=== PATIENT | female | born 1945 | race Caucasian/White ===

== ENCOUNTER 2021-09-27 16:21 | Inpatient (IN) ==
[2021-09-28] MEDS ORDERED: Ondansetron 4 MG/2 ML VIAL IVP PRN (02:08)
[2021-09-28] MEDS ORDERED: Acetaminophen 325 MG TABLET PO PRN (02:08)
[2021-09-28] MEDS ORDERED: Naloxone 0.4 MG/ML INJ IVP PRN (02:08)
[2021-09-28] MEDS ORDERED: traZODone 50 MG TABLET PO PRN (03:37)
[2021-09-28] MEDS ORDERED: Simethicone 80 MG TAB.CHEW PO PRN (03:37)
[2021-09-28] MEDS ORDERED: Dextrose Gel 15 GM/37.5 ML TUBE PO PRN ×2 (08:43)
[2021-09-28] MEDS ORDERED: *HR* Dextrose 50 % in Water (Syg) 50 ML SYRINGE IVP PRN (08:43)
[2021-09-28] MEDS ORDERED: D5% in Water 1,000 ML IVC PRN (08:43)
[2021-09-28] MEDS ORDERED: CefTRIAXone 1,000 MG VIAL IVPB SCH (09:00)
[2021-09-28] MEDS: Patient Taking Own Medication 1 EACH PO SCH (09:30)
[2021-09-28] MEDS: cefTRIAXone 1,000 MG in 0.9 % Sodium Chloride Mini Bag 100 ML IVPB SCH (09:31)
[2021-09-28] MEDS: Metoprolol XL (24 HR) Succ 25 MG TAB.ER.24H PO SCH (09:35)
[2021-09-28] MEDS: Ascorbic Acid 500 MG TABLET PO SCH (09:35)
[2021-09-28] MEDS: *HR* Glimepiride 2 MG TABLET PO SCH ×2 (09:36→22:52)
[2021-09-28] MEDS: *HR* Rivaroxaban 10 MG TABLET PO SCH (09:36)
[2021-09-28] MEDS: Furosemide 40 MG TABLET PO SCH (09:36)
[2021-09-28] MEDS: Cholecalciferol (D-3) 1,000 UNIT (25MCG) TABLET PO SCH (09:36)
[2021-09-28] MEDS: Cyanocobalamin (B-12) 1,000 MCG TABLET PO SCH (09:36)
[2021-09-28] MEDS: metroNIDAZOLE 500 MG TABLET PO SCH ×3 (09:37→22:50)
[2021-09-28] MEDS: Aspirin Enteric Coated 81 MG Tablet PO SCH (09:37)
[2021-09-28] MEDS: Fluconazole 100 MG TABLET PO SCH (09:37)
[2021-09-28] MEDS: Magnesium Oxide 400 MG TABLET PO SCH (09:37)
[2021-09-28] MEDS: Insulin DETEMIR 100 UNIT/ML X5UNITS SUBQ SCH ×2 (09:39→23:00)
[2021-09-28] MEDS: *HR* OxyCODONE/APAP 5/325 TABLET PO PRN ×2 (09:49→22:47)
[2021-09-28] MEDS ORDERED: Insulin DETEMIR 100 UNIT/ML X5UNITS SUBQ SCH (10:00)
[2021-09-28] MEDS: Insulin LISPRO 300 UNITS/3 ML VIAL SUBQ SCH ×3 (12:07→22:58)
[2021-09-29] MEDS: *HR* OxyCODONE/APAP 5/325 TABLET PO PRN ×2 (06:11→12:38)
[2021-09-29 06:14] LABS: Basophils % 0.3 %; Eosinophils # 0.1 K/mcL (0.0-0.6); Eosinophils % 1.6 %; Hematocrit 31.9 % (35.3-44.9); Hemoglobin 9.5 g/dL (11.5-15.4); Immature Granulocytes % 0.7 % (0-4); Lymphocytes # 1.6 K/mcL (0.6-4.6); Lymphocytes % 18.5 %; Mean Corpuscular HGB Conc 29.8 g/dL (31.6-35.5); Mean Corpuscular Hemoglobin 27.3 pg (28.0-33.3); Mean Corpuscular Volume 91.7 fL (83.0-100.0); Mean Platelet Volume 10.6 fL (9.4-12.4); Monocytes # 0.8 K/mcL (0.0-1.3); Monocytes % 8.8 %; Platelet Count 222 K/mcL (140-400); Red Blood Count 3.48 M/mcL (3.82-4.97); Red Cell Distribution Width 15.9 % (11.5-14.5); Segmented Neutrophils % 70.1 %; White Blood Count 8.6 K/mcL (4.3-11.1)
[2021-09-29 06:27] LABS: Alanine Aminotransferase 7 Units/L (7-52); Albumin 2.7 g/dL (3.5-5.7); Albumin/Globulin Ratio 0.9 (1.1-2.2); Alkaline Phosphatase 87 Units/L (34-104); Aspartate Amino Transferase 12 Units/L (13-39); BUN/Creatinine Ratio 17 (6-26); Bilirubin,Total 0.5 mg/dL (0.3-1.0); Blood Urea Nitrogen 9 mg/dL (8-23); Carbon Dioxide 28 mEq/L (23-29); Chloride 99 mEq/L (98-107); Globulin 3.1 g/dL (2.4-3.5); Glucose 178 mg/dL (70-105); Osmolality,Calculated 283 (280-300); Potassium 3.6 mEq/L (3.5-5.1); Sodium 135 mEq/L (136-145); Total Protein 5.8 g/dL (6.4-8.9); eGFR For African Americans > 60 (> 60); eGFR For Non-African Americans > 60 (> 60)
[2021-09-29] MEDS: cefTRIAXone 1,000 MG in 0.9 % Sodium Chloride Mini Bag 100 ML IVPB SCH (08:53)
[2021-09-29] MEDS: Patient Taking Own Medication 1 EACH PO SCH (08:54)
[2021-09-29] MEDS: Insulin DETEMIR 100 UNIT/ML X5UNITS SUBQ SCH ×2 (08:55→20:39)
[2021-09-29] MEDS: Insulin LISPRO 300 UNITS/3 ML VIAL SUBQ SCH ×4 (08:55→20:39)
[2021-09-29] MEDS: Ascorbic Acid 500 MG TABLET PO SCH (08:56)
[2021-09-29] MEDS: *HR* Rivaroxaban 10 MG TABLET PO SCH (08:56)
[2021-09-29] MEDS: Aspirin Enteric Coated 81 MG Tablet PO SCH (08:56)
[2021-09-29] MEDS: Magnesium Oxide 400 MG TABLET PO SCH (08:56)
[2021-09-29] MEDS: metroNIDAZOLE 500 MG TABLET PO SCH ×3 (08:56→20:35)
[2021-09-29] MEDS: Cholecalciferol (D-3) 1,000 UNIT (25MCG) TABLET PO SCH (08:56)
[2021-09-29] MEDS: Fluconazole 100 MG TABLET PO SCH (08:57)
[2021-09-29] MEDS: *HR* Glimepiride 2 MG TABLET PO SCH ×2 (08:57→20:37)
[2021-09-29] MEDS: Cyanocobalamin (B-12) 1,000 MCG TABLET PO SCH (08:57)
[2021-09-29] MEDS: Furosemide 40 MG TABLET PO SCH (08:57)
[2021-09-29] MEDS: Metoprolol XL (24 HR) Succ 25 MG TAB.ER.24H PO SCH (09:22)
[2021-09-29 12:20] LABS: Estimated Average Glucose 206 mg/dl; Hemoglobin A1C 8.8 %
[2021-09-30] MEDS: *HR* OxyCODONE/APAP 5/325 TABLET PO PRN ×3 (03:05→23:56)
[2021-09-30] MEDS: Magnesium Oxide 400 MG TABLET PO SCH (09:49)
[2021-09-30] MEDS: *HR* Glimepiride 2 MG TABLET PO SCH ×2 (09:49→23:30)
[2021-09-30] MEDS: metroNIDAZOLE 500 MG TABLET PO SCH ×3 (09:49→23:30)
[2021-09-30] MEDS: Ascorbic Acid 500 MG TABLET PO SCH (09:50)
[2021-09-30] MEDS: Cholecalciferol (D-3) 1,000 UNIT (25MCG) TABLET PO SCH (09:50)
[2021-09-30] MEDS: Aspirin Enteric Coated 81 MG Tablet PO SCH (09:51)
[2021-09-30] MEDS: Cyanocobalamin (B-12) 1,000 MCG TABLET PO SCH (09:51)
[2021-09-30] MEDS: Furosemide 40 MG TABLET PO SCH (09:51)
[2021-09-30] MEDS: Fluconazole 100 MG TABLET PO SCH (09:52)
[2021-09-30] MEDS: *HR* Rivaroxaban 10 MG TABLET PO SCH (09:52)
[2021-09-30] MEDS: cefTRIAXone 1,000 MG in 0.9 % Sodium Chloride Mini Bag 100 ML IVPB SCH (09:53)
[2021-09-30] MEDS: Patient Taking Own Medication 1 EACH PO SCH (09:59)
[2021-09-30] MEDS: Insulin LISPRO 300 UNITS/3 ML VIAL SUBQ SCH ×4 (10:11→23:48)
[2021-09-30] MEDS: Insulin DETEMIR 100 UNIT/ML X5UNITS SUBQ SCH ×2 (10:12→23:48)
[2021-10-01 05:54] LABS: Hematocrit 31.9 % (35.3-44.9); Hemoglobin 9.6 g/dL (11.5-15.4); Mean Corpuscular HGB Conc 30.1 g/dL (31.6-35.5); Mean Corpuscular Hemoglobin 27.3 pg (28.0-33.3); Mean Corpuscular Volume 90.6 fL (83.0-100.0); Mean Platelet Volume 10.3 fL (9.4-12.4); Platelet Count 275 K/mcL (140-400); Red Blood Count 3.52 M/mcL (3.82-4.97); Red Cell Distribution Width 15.9 % (11.5-14.5); White Blood Count 7.9 K/mcL (4.3-11.1)
[2021-10-01 06:04] LABS: Alanine Aminotransferase 8 Units/L (7-52); Albumin 2.7 g/dL (3.5-5.7); Albumin/Globulin Ratio 0.9 (1.1-2.2); Alkaline Phosphatase 74 Units/L (34-104); Aspartate Amino Transferase 8 Units/L (13-39); BUN/Creatinine Ratio 15 (6-26); Bilirubin,Total 0.5 mg/dL (0.3-1.0); Blood Urea Nitrogen 8 mg/dL (8-23); Calcium 7.9 mg/dL (8.6-10.3); Carbon Dioxide 32 mEq/L (23-29); Chloride 97 mEq/L (98-107); Globulin 3.1 g/dL (2.4-3.5); Glucose 184 mg/dL (70-105); Magnesium 1.5 mg/dL (1.6-2.6); Osmolality,Calculated 285 (280-300); Potassium 3.5 mEq/L (3.5-5.1); Sodium 136 mEq/L (136-145); Total Protein 5.8 g/dL (6.4-8.9); eGFR For African Americans > 60 (> 60); eGFR For Non-African Americans > 60 (> 60)
[2021-10-01] MEDS: Insulin DETEMIR 100 UNIT/ML X5UNITS SUBQ SCH ×2 (07:58→20:01)
[2021-10-01] MEDS: cefTRIAXone 1,000 MG in 0.9 % Sodium Chloride Mini Bag 100 ML IVPB SCH (07:58)
[2021-10-01] MEDS: *HR* Rivaroxaban 10 MG TABLET PO SCH (08:01)
[2021-10-01] MEDS: Insulin LISPRO 300 UNITS/3 ML VIAL SUBQ SCH ×4 (08:01→20:00)
[2021-10-01] MEDS: Cyanocobalamin (B-12) 1,000 MCG TABLET PO SCH (08:01)
[2021-10-01] MEDS: metroNIDAZOLE 500 MG TABLET PO SCH ×3 (08:01→20:02)
[2021-10-01] MEDS: Cholecalciferol (D-3) 1,000 UNIT (25MCG) TABLET PO SCH (08:01)
[2021-10-01] MEDS: Magnesium Oxide 400 MG TABLET PO SCH (08:02)
[2021-10-01] MEDS: Furosemide 40 MG TABLET PO SCH (08:02)
[2021-10-01] MEDS: Aspirin Enteric Coated 81 MG Tablet PO SCH (08:02)
[2021-10-01] MEDS: *HR* Glimepiride 2 MG TABLET PO SCH ×2 (08:02→20:01)
[2021-10-01] MEDS: Ascorbic Acid 500 MG TABLET PO SCH (08:02)
[2021-10-01] MEDS: Patient Taking Own Medication 1 EACH PO SCH (08:02)
[2021-10-01] MEDS: Fluconazole 100 MG TABLET PO SCH (10:36)
[2021-10-01] MEDS: *HR* OxyCODONE/APAP 5/325 TABLET PO PRN ×2 (13:54→22:40)
[2021-10-02] MEDS: Cholecalciferol (D-3) 1,000 UNIT (25MCG) TABLET PO SCH (09:23)
[2021-10-02] MEDS: Furosemide 40 MG TABLET PO SCH (09:24)
[2021-10-02] MEDS: Aspirin Enteric Coated 81 MG Tablet PO SCH (09:24)
[2021-10-02] MEDS: *HR* Rivaroxaban 10 MG TABLET PO SCH (09:25)
[2021-10-02] MEDS: metroNIDAZOLE 500 MG TABLET PO SCH ×3 (09:25→21:56)
[2021-10-02] MEDS: Cyanocobalamin (B-12) 1,000 MCG TABLET PO SCH (09:26)
[2021-10-02] MEDS: Magnesium Oxide 400 MG TABLET PO SCH (09:26)
[2021-10-02] MEDS: Ascorbic Acid 500 MG TABLET PO SCH (09:26)
[2021-10-02] MEDS: *HR* Glimepiride 2 MG TABLET PO SCH ×2 (09:26→21:57)
[2021-10-02] MEDS: Fluconazole 100 MG TABLET PO SCH (09:27)
[2021-10-02] MEDS: Insulin DETEMIR 100 UNIT/ML X5UNITS SUBQ SCH ×2 (09:31→22:06)
[2021-10-02] MEDS: cefTRIAXone 1,000 MG in 0.9 % Sodium Chloride Mini Bag 100 ML IVPB SCH (09:40)
[2021-10-02] MEDS: Insulin LISPRO 300 UNITS/3 ML VIAL SUBQ SCH ×4 (09:40→22:08)
[2021-10-02] MEDS: Patient Taking Own Medication 1 EACH PO SCH (09:40)
[2021-10-02] MEDS: *HR* OxyCODONE/APAP 5/325 TABLET PO PRN ×2 (13:45→21:57)
[2021-10-03] MEDS: Insulin LISPRO 300 UNITS/3 ML VIAL SUBQ SCH ×4 (07:16→20:09)
[2021-10-03] MEDS: Ascorbic Acid 500 MG TABLET PO SCH (09:07)
[2021-10-03] MEDS: metroNIDAZOLE 500 MG TABLET PO SCH ×3 (09:07→20:07)
[2021-10-03] MEDS: *HR* OxyCODONE/APAP 5/325 TABLET PO PRN ×2 (09:07→21:22)
[2021-10-03] MEDS: Cyanocobalamin (B-12) 1,000 MCG TABLET PO SCH (09:07)
[2021-10-03] MEDS: Cholecalciferol (D-3) 1,000 UNIT (25MCG) TABLET PO SCH (09:08)
[2021-10-03] MEDS: Furosemide 40 MG TABLET PO SCH (09:08)
[2021-10-03] MEDS: *HR* Glimepiride 2 MG TABLET PO SCH ×2 (09:08→20:07)
[2021-10-03] MEDS: *HR* Rivaroxaban 10 MG TABLET PO SCH (09:08)
[2021-10-03] MEDS: Magnesium Oxide 400 MG TABLET PO SCH (09:08)
[2021-10-03] MEDS: Aspirin Enteric Coated 81 MG Tablet PO SCH (09:08)
[2021-10-03] MEDS: Fluconazole 100 MG TABLET PO SCH (09:08)
[2021-10-03] MEDS: Insulin DETEMIR 100 UNIT/ML X5UNITS SUBQ SCH ×2 (09:11→20:08)
[2021-10-03] MEDS: Patient Taking Own Medication 1 EACH PO SCH (09:12)
[2021-10-03] MEDS: cefTRIAXone 1,000 MG in 0.9 % Sodium Chloride Mini Bag 100 ML IVPB SCH (09:12)
[2021-10-04 06:20] LABS: Basophils # 0.1 K/mcL (0.0-0.2); Basophils % 0.6 %; Eosinophils # 0.2 K/mcL (0.0-0.6); Hematocrit 35.2 % (35.3-44.9); Hemoglobin 10.5 g/dL (11.5-15.4); Immature Granulocytes % 0.5 % (0-4); Lymphocytes # 1.5 K/mcL (0.6-4.6); Lymphocytes % 13.1 %; Mean Corpuscular HGB Conc 29.8 g/dL (31.6-35.5); Mean Corpuscular Hemoglobin 27.3 pg (28.0-33.3); Mean Corpuscular Volume 91.7 fL (83.0-100.0); Monocytes # 0.8 K/mcL (0.0-1.3); Monocytes % 7.5 %; Neutrophils # 8.6 K/mcL (1.6-8.9); Platelet Count 348 K/mcL (140-400); Red Blood Count 3.84 M/mcL (3.82-4.97); Red Cell Distribution Width 16.1 % (11.5-14.5); Segmented Neutrophils % 76.3 %; White Blood Count 11.2 K/mcL (4.3-11.1)
[2021-10-04 06:56] LABS: Alanine Aminotransferase 7 Units/L (7-52); Albumin 3.1 g/dL (3.5-5.7); Albumin/Globulin Ratio 0.7 (1.1-2.2); Alkaline Phosphatase 80 Units/L (34-104); Aspartate Amino Transferase 9 Units/L (13-39); BUN/Creatinine Ratio 12 (6-26); Bilirubin,Total 0.5 mg/dL (0.3-1.0); Blood Urea Nitrogen 7 mg/dL (8-23); Calcium 9.2 mg/dL (8.6-10.3); Carbon Dioxide 33 mEq/L (23-29); Chloride 96 mEq/L (98-107); Globulin 4.3 g/dL (2.4-3.5); Glucose 156 mg/dL (70-105); Osmolality,Calculated 283 (280-300); Potassium 4.2 mEq/L (3.5-5.1); Sodium 136 mEq/L (136-145); Total Protein 7.4 g/dL (6.4-8.9); eGFR For African Americans > 60 (> 60); eGFR For Non-African Americans > 60 (> 60)
[2021-10-04] MEDS: Cholecalciferol (D-3) 1,000 UNIT (25MCG) TABLET PO SCH (08:30)
[2021-10-04] MEDS: Furosemide 40 MG TABLET PO SCH (08:30)
[2021-10-04] MEDS: *HR* Glimepiride 2 MG TABLET PO SCH ×2 (08:30→21:15)
[2021-10-04] MEDS: Fluconazole 100 MG TABLET PO SCH (08:30)
[2021-10-04] MEDS: *HR* Rivaroxaban 10 MG TABLET PO SCH (08:30)
[2021-10-04] MEDS: Magnesium Oxide 400 MG TABLET PO SCH (08:31)
[2021-10-04] MEDS: cefTRIAXone 1,000 MG in 0.9 % Sodium Chloride Mini Bag 100 ML IVPB SCH (08:31)
[2021-10-04] MEDS: metroNIDAZOLE 500 MG TABLET PO SCH ×3 (08:31→21:14)
[2021-10-04] MEDS: Ascorbic Acid 500 MG TABLET PO SCH (08:31)
[2021-10-04] MEDS: Insulin LISPRO 300 UNITS/3 ML VIAL SUBQ SCH ×4 (08:31→21:17)
[2021-10-04] MEDS: Cyanocobalamin (B-12) 1,000 MCG TABLET PO SCH (08:31)
[2021-10-04] MEDS: Aspirin Enteric Coated 81 MG Tablet PO SCH (08:32)
[2021-10-04] MEDS: Patient Taking Own Medication 1 EACH PO SCH (08:37)
[2021-10-04] MEDS: *HR* OxyCODONE/APAP 5/325 TABLET PO PRN ×2 (08:37→21:13)
[2021-10-04] MEDS: Insulin DETEMIR 100 UNIT/ML X5UNITS SUBQ SCH ×2 (08:37→21:18)
[2021-10-05 07:44] VITALS: BP 153/62; PULSE 64; RESP 17; TEMP 97.5; O2SAT 96
[2021-10-05] MEDS: Insulin LISPRO 300 UNITS/3 ML VIAL SUBQ SCH ×2 (07:52→12:11)
[2021-10-05] MEDS: cefTRIAXone 1,000 MG in 0.9 % Sodium Chloride Mini Bag 100 ML IVPB SCH (07:59)
[2021-10-05] MEDS: Cyanocobalamin (B-12) 1,000 MCG TABLET PO SCH (08:00)
[2021-10-05] MEDS: *HR* Rivaroxaban 10 MG TABLET PO SCH (08:00)
[2021-10-05] MEDS: Fluconazole 100 MG TABLET PO SCH (08:01)
[2021-10-05] MEDS: metroNIDAZOLE 500 MG TABLET PO SCH (08:01)
[2021-10-05] MEDS: Magnesium Oxide 400 MG TABLET PO SCH (08:01)
[2021-10-05] MEDS: *HR* Glimepiride 2 MG TABLET PO SCH (08:01)
[2021-10-05] MEDS: Cholecalciferol (D-3) 1,000 UNIT (25MCG) TABLET PO SCH (08:01)
[2021-10-05] MEDS: Ascorbic Acid 500 MG TABLET PO SCH (08:01)
[2021-10-05] MEDS: Furosemide 40 MG TABLET PO SCH (08:01)
[2021-10-05] MEDS: Aspirin Enteric Coated 81 MG Tablet PO SCH (08:02)
[2021-10-05] MEDS: Insulin DETEMIR 100 UNIT/ML X5UNITS SUBQ SCH (08:10)
[2021-10-05] MEDS: Patient Taking Own Medication 1 EACH PO SCH (08:11)
[2021-10-05] MEDS: *HR* OxyCODONE/APAP 5/325 TABLET PO PRN (12:17)
== END 2021-10-05 15:15 | disposition home or self-care (01) | DRG 871 ==
LOC: OBSVTOIN 09-28 00:41 → INTOOBSV 09-28 00:41 → INPGRE 09-28 00:41
PROVIDERS: ADMIT Family Medicine; ATTEND Family Medicine